=== PATIENT | female | born 1995 | race Two or more races ===

== ENCOUNTER 2023-10-24 18:37 | Observation (INO) | payer MEDICAID, OTHER ==
[~2023-10-24] VITALS: Ht 157.5 cm; Wt 60.8 kg
[2023-10-24 20:26] LABS: COVID19 ANTIGEN SOFIA FIA POSITIVE (NEGATIVE)
[2023-10-24] MEDS: LACTATED RINGER'S 1,000 ML IV ONE (20:43)
[2023-10-24] MEDS: LACTATED RINGER'S 1,000 ML IV PRN (20:44)
[2023-10-24] MEDS ORDERED: D5W/LACTATED RINGERS 1,000 ML IV PRN (21:00)
== END 2023-10-24 21:36 | disposition home or self-care (01) ==
LOC: LDRP 18:37
PROVIDERS: ADMIT Obstetrics & Gynecology; ATTEND Obstetrics & Gynecology
DX: O98.513 Other viral diseases complicating pregnancy, third trimester (principal); O21.2 Late vomiting of pregnancy; O26.893 Other specified pregnancy related conditions, third trimester; U07.1 COVID-19; R00.0 Tachycardia, unspecified; R19.7 Diarrhea, unspecified; R51.9 Headache, unspecified; Z3A.37 37 weeks gestation of pregnancy; Z88.1 Allergy status to other antibiotic agents
CPT/HCPCS: 36415; 59025; 81002; 87426; 94760; 96360; 96361; G0378